=== PATIENT | male | born 1935 | race Caucasian/White ===

== ENCOUNTER → 2024-12-08 15:02 | Outpatient (REF) | payer OTHER, SELFPAY | LOC: HWRCS 15:02 | PROVIDERS: ATTENDING PHYSICIAN Internal Medicine Cardiovascular Disease; FAMILY PHYSICIAN Internal Medicine | DX: I25.10 Atherosclerotic heart disease of native coronary artery without angina pectoris (principal) | CPT/HCPCS: 93306 ==